=== PATIENT | male | born 1975 | race Caucasian/White ===

== ENCOUNTER 2017-02-19 18:06 | Emergency (ER) | payer OTHER ==
[~2017-02-19] VITALS: Ht 177.8 cm; Wt 124.7 kg
[~2017-02-19 18:06] MED LIST: ASPIRIN325 MG PO; ASPIRIN81 M1 PO; CHANTIX1 MG PO; CORDROL20 MG PO; IBU-8800 MG PO; LISINOPRIL10 MG PO; NAPROSYN500 MG PO; NKHM; PREDNICOT20 MG PO; PRILOSEC20 M1 PO; PRILOSEC40 M1 PO; ZANTAC 300300 MG PO; ZITHROMAX Z PA250 MG PO; ZITHROMAX250 MG PO; ZOFRAN ODT4 MG SL
[2017-02-19] MEDS ORDERED: PRILOSEC20 M1 PO (18:49)
[2017-02-19 19:02] VITALS: BP 170/70
[2017-02-19] MEDS ORDERED: PRINIVIL10 MG PO (19:08)
[2017-02-19] MEDS ORDERED: AVPAK AZITHROM250 M1 PO (19:08)
== END 2017-02-19 19:12 | disposition home or self-care (01) ==
LOC: ED 18:06
DX: I10 Essential (primary) hypertension (principal); J06.9 Acute upper respiratory infection, unspecified; Z79.82 Long term (current) use of aspirin; Z79.899 Other long term (current) drug therapy

== ENCOUNTER 2017-03-13 17:29 | Emergency (ER) | payer OTHER ==
[~2017-03-13] VITALS: Wt 127.0 kg
[2017-03-13 17:29] VITALS: BP 175/126
[~2017-03-13 17:29] MED LIST changes: +AVPAK AZITHROM250 M1 PO; +PRINIVIL10 MG PO
[2017-03-13 18:07] LABS: BILIRUBIN NEGATIVE (NEGATIVE); BLOOD NEGATIVE (NEGATIVE); CLARITY CLEAR (CLEAR); COLOR YELLOW (YELLOW); GLUCOSE NEGATIVE (NEGATIVE); KETONE NEGATIVE (NEGATIVE); LEUKO ESTERASE NEGATIVE (NEGATIVE); NITRITE NEGATIVE (NEGATIVE); PH 5.5 (5.0-9.0); PROTEIN NEGATIVE (NEGATIVE); SPECIFIC GRAVITY 1.025 (1.005-1.030)
[2017-03-13 18:19] LABS: URINE REFLEX COMMENT NO (NO); WBC 0-2 wbc/hpf (0-5)
[2017-03-13] MEDS ORDERED: ULTRAM50 MG PO (19:12)
[2017-03-13] MEDS ORDERED: MEDROL DOSEPAK4 MG PO (19:12)
== END 2017-03-13 19:39 | disposition home or self-care (01) ==
LOC: ED 17:29
PROVIDERS: Physician Assistant
DX: M54.16 Radiculopathy, lumbar region (principal); Z79.82 Long term (current) use of aspirin; Z79.899 Other long term (current) drug therapy

== ENCOUNTER → 2017-04-11 | Outpatient (CLI) | payer OTHER ==
[~2017-04-11] MED LIST changes: +MEDROL DOSEPAK4 MG PO; +ULTRAM50 MG PO
== END | disposition home or self-care (01) ==
LOC: MRI 13:53
DX: M51.25 Other intervertebral disc displacement, thoracolumbar region (principal); M51.34 Other intervertebral disc degeneration, thoracic region; M48.06 Spinal stenosis, lumbar region; M43.16 Spondylolisthesis, lumbar region

== ENCOUNTER 2017-05-04 23:18 | Emergency (ER) | payer OTHER ==
[~2017-05-04] VITALS: Ht 177.8 cm; Wt 122.5 kg
[2017-05-05 00:02] VITALS: BP 126/89
[2017-05-05 01:02] LABS: BILIRUBIN NEGATIVE (NEGATIVE); BLOOD NEGATIVE (NEGATIVE); CLARITY CLEAR (CLEAR); COLOR YELLOW (YELLOW); GLUCOSE 2+ (NEGATIVE); KETONE NEGATIVE (NEGATIVE); LEUKO ESTERASE NEGATIVE (NEGATIVE); NITRITE NEGATIVE (NEGATIVE); PH 5.5 (5.0-9.0); PROTEIN NEGATIVE (NEGATIVE); SPECIFIC GRAVITY 1.025 (1.005-1.030); UROBILINOGEN 0.2 E.U./dl (0.2-1.0)
[2017-05-05 01:08] LABS: BACTERIA TRACE; EPITHELIAL CELLS 0-2; RBC 0-2 rbc/hpf (0-2); URINE REFLEX COMMENT NO (NO); WBC 0-2 wbc/hpf (0-5)
[2017-05-05] MEDS ORDERED: CYCLOBENZAPRINE5 M3 PO (01:14)
[2017-05-05] MEDS ORDERED: MEDROL DOSEPAK4 MG PO (01:14)
[2017-05-05] MEDS ORDERED: TYLENOL WITH CO1 TA1 PO (01:14)
== END 2017-05-05 01:37 | disposition home or self-care (01) ==
LOC: ED 23:18
PROVIDERS: Physician Assistant
DX: G89.29 Other chronic pain (principal); M54.5 Low back pain; Z79.82 Long term (current) use of aspirin

== ENCOUNTER 2017-09-12 23:21 | Inpatient (IN) | payer SELFPAY ==
[~2017-09-12] VITALS: Ht 177.8 cm; Wt 127.5 kg
--- NOTE | ~2017-09-12 | CON ---
[place], [place] REPORT OF CONSULTATION NAME: KAPIL WOOD UNIT #: [id number] ROOM: 428 DOCTOR: JOSE MURPHY MD BIRTHDATE: [birth year] DOS: 09/13/2017 REASON FOR CONSULTATION: Chest pain and left body paresthesias. HISTORY OF PRESENT ILLNESS: The patient is a 42-year-old man who does have a history of obesity, type 2 diabetes mellitus (currently diet controlled) and hypertension. He had been admitted in the past to the [facility] with chest discomfort and hypertensive urgency. He tells me that a stress test was done while he was hospitalized at [facility] 1 year ago and he was told that it was normal. He was in his normal state of health until last evening. He was watching television at rest when he developed a tingling sensation in his left arm and left leg. He stated that his left hand felt weak. He got up and walked around, but his symptoms did not improve. He did not notice any other focal weakness. He tried to change positions, but nothing made the tingling any better. Subsequently, when he lay down, he felt a tight sensation in his chest. He became very concerned and therefore came to the Emergency Room. In the Emergency Room, a CAT scan of his head showed no acute intracranial process. Serial electrocardiograms were normal and troponin levels x 3 were normal. This morning, the discomfort in his chest is gone, but he continues to have tingling and paresthesias in his left arm and left leg. PAST MEDICAL HISTORY: Includes: 1. Essential hypertension. 2. Type 2 diabetes mellitus, diet controlled. 3. Intentional weight loss of about 40 pounds in the last year for management of his diabetes. 4. Morbid obesity. 5. Status post cholecystectomy, tonsillectomy and foot surgery. MEDICATIONS PRIOR TO ADMISSION: Aspirin 81 mg daily, lisinopril 10 mg daily and omeprazole 20 mg daily. ALLERGIES: He has no known drug allergies. FAMILY HISTORY: The patient's father and grandfather both had heart disease at a fairly early age. The patient states that his father of heart attack after having bypass surgery at age 65. REVIEW OF SYSTEMS: The patient denies diplopia or loss of vision. He states that he has a subjective feeling that his left hand is weak, but denies any other focal weakness. He does have the paresthesias of his left arm and left leg described before. He denies fevers, chills, sweats or recent weight change. He denies nausea or vomiting. He denies hemoptysis or hematemesis. He denies any recent injury to his back or neck. He denies orthopnea or PND. He denies any change in bowel or bladder habits and denies any blood in his urine or stool. He denies any skin rashes. He denies any swelling in his legs. He does have some pain and weakness in his right leg after an injury several months ago. He believes he tore a calf muscle. He denies polydipsia, polyuria or heat or cold intolerance. Remainder of the review of systems is negative except as [place], [place] REPORT OF CONSULTATION NAME: KAPIL WOOD UNIT #: [id number] ROOM: [facility] DOCTOR: JOSE MURPHY MD BIRTHDATE: [birth year] noted above. SOCIAL HISTORY: The patient is and lives with his . He does not smoke, but he does dip snuff. He does not consume excessive amounts of alcohol. PHYSICAL EXAMINATION: GENERAL: The patient is an overweight white male who is awake, alert and oriented. VITAL SIGNS: Pulse is 85 and regular, blood pressure on admission was 172/98, but it is currently 132/92. He is afebrile. He weighs 127.5 kg and has a body mass index of 40.3. HEENT: Normocephalic, atraumatic. Extraocular muscles are intact. Sclerae are clear. Pupils are equal, round and reactive to light. The oral mucosa is moist. Tongue is midline. NECK: Supple. He has no jugular distention. Carotids are full. I heard no bruits. He had no neck or supraclavicular masses. LUNGS: Respirations are unlabored. His chest is clear to auscultation and percussion. He has no presacral edema or chest wall tenderness. CARDIOVASCULAR: His heart has a regular rhythm. He has a soft fourth heart sound, but no third heart sound or murmur. The PMI is not displaced. He has no precordial heave, lift or thrill. ABDOMEN: Soft and normally active without masses, organomegaly or bruits. EXTREMITIES: Showed no clubbing, cyanosis or edema. Peripheral pulses are easily palpated in the feet bilaterally. He had no palpable cords or Homans sign. LABORATORY DATA: I reviewed his electrocardiograms that showed sinus rhythm and were normal tracings. No acute ST or T-wave changes were seen. Serial troponin levels were normal. Hemoglobin 13.4 with hematocrit 38.3. There are 6800 white cells and 223,000 platelets. INR is 0.9. Sodium 140, potassium 3.5, chloride 105, CO2 of 27, BUN 13, creatinine 1.04, sugar was 113. Hemoglobin A1c 6.6. Total cholesterol 125, triglycerides 112, LDL 70, HDL 33. TSH is 1.11. IMPRESSIONS: 1. Left body paresthesias, etiology not yet determined. These involve his arm and his leg, suggesting a central neurologic process rather than related to coronary ischemia. 2. Brief episode of substernal chest pain. The patient had no EKG changes or elevation in troponin. A stress test done 1 year ago was reportedly normal. 3. Type 2 diabetes mellitus, on diet therapy. 4. Hypertension. 5. Morbid obesity. PLAN: I had intended to do another stress test on the patient, but I am concerned about his continued left-sided paresthesias. For now, we will delay the stress test and evaluate him further with an MRI of the brain and carotid ultrasound. I would continue his lisinopril for blood pressure control. We will add clopidogrel to his aspirin as antiplatelet therapy. Further [place], [place] REPORT OF CONSULTATION NAME: KAPIL WOOD UNIT #: [id number] ROOM: 428 DOCTOR: JOSE MURPHY MD BIRTHDATE: [birth year] recommendations will depend upon his course in the hospital, MRI results, etc. I thank the hospitalist physicians for asking our advice regarding his care. JOSE MURPHY MD CM:CONSTR:REPORT OF CONSULTATION [id number] 09/13/17 0916 interface
--- NOTE | ~2017-09-12 | PR ---
[place], [place] PROGRESS NOTE NAME: KAPIL WOOD [facility] #: [id number] UNIT #: [id number] ROOM: 428 DOCTOR: JOSE MURPHY MD BIRTHDATE: [birth year] DOS: SUBJECTIVE: The patient was seen in the Cardiology Department just prior to his stress test today. He states that he is no longer having any chest discomfort. He still has paresthesias in his left arm, but his left leg has returned to normal. He has no focal weakness. His evaluation yesterday included an MRI of the head, which showed no acute intracranial abnormalities and no evidence for stroke. A carotid Doppler study showed normal flow and no significant plaque. PHYSICAL EXAMINATION: VITAL SIGNS: Today his pulse is 65 and regular, blood pressure is 134/74. He is afebrile. He weighs 127.5 kg and has a body mass index of 40.3. HEENT: Normocephalic, atraumatic. Extraocular muscles are intact. Sclerae are clear. Pupils are equal, round and react to light. Oral mucosa is moist. Tongue is midline. NECK: Supple. He has no jugular distention. Carotids are full without bruits. He has no neck or supraclavicular masses, no thyromegaly. LUNGS: Respirations are unlabored. His chest is clear to auscultation and percussion. He has no presacral edema. HEART: Has a regular rhythm with a very soft fourth heart sound, but no third heart sound or murmur. The PMI is not displaced. He has no precordial heave, lift or thrill. ABDOMEN: Soft and normally active without masses, organomegaly or bruits. EXTREMITIES: Showed no edema. IMPRESSION: 1. Left-sided paresthesias, etiology not yet determined. These involve his arm and his leg suggesting a neurologic process rather than coronary ischemia. 2. Brief episode of substernal chest pain without EKG changes or elevation in troponin. 3. Type 2 diabetes mellitus, managed with diet. 4. Hypertension. 5. Obesity. PLAN: We will proceed with an exercise myocardial perfusion examination. If that is normal, then no other cardiac workup would be indicated. Further evaluation of his cervical spine may be appropriate and will be deferred to his primary team. [facility] and I thank the hospitalist group for asking our advice regarding the patient's care. [place], [place] PROGRESS NOTE NAME: KAPIL WOOD UNIT #: [id number] ROOM: 428 DOCTOR: JOSE MURPHY MD BIRTHDATE: [birth year] JOSE MURPHY MD CM:PNJORDY [id number] JOSE MURPHY MD 09/14/17 1019 interface
[~2017-09-12 23:21] MED LIST changes: +CYCLOBENZAPRINE5 M3 PO; +TYLENOL WITH CO1 TA1 PO
[2017-09-12 23:25] VITALS: BP 167/109
[2017-09-13] VITALS (10 sets, daily range): BP systolic 130–172; BP diastolic 70–108
[2017-09-13 00:03] LABS: BASO % 0.4 % (0.0-1.0); EOS # 0.2 10*3/uL (0.0-0.4); EOS % 2.2 % (1.0-4.0); HEMOGLOBIN 13.9 g/dl (14.0-18.0); LYMPH # 1.9 10*3/uL (1.3-4.4); LYMPH % 27.2 % (27.0-41.0); MEAN CELL VOLUME 87.1 fl (80.0-94.0); MEAN CORPUSCULAR HGB 30.3 pg (27.0-31.0); MEAN CORPUSCULAR HGB CONC 34.8 g/dl (33.0-37.0); MEAN PLATELET VOLUME 9.9 fl (9.6-12.3); MONO # 0.5 10*3/uL (0.1-1.0); MONO % 6.3 % (3.0-9.0); NEUT # 4.5 10*3/uL (2.3-7.9); NEUT % 63.5 % (47.0-73.0); PLATELET COUNT AUTOMATED 243 10*3/uL (130-400); RED BLOOD COUNT 4.59 10*6/uL (4.50-5.90); RED CELL DISTRI WIDTH 12.5 % (0-14.5); WHITE BLOOD COUNT 7.1 10*3/uL (4.8-10.8)
[2017-09-13 00:14] LABS: ACT PARTIAL THROMBO TIME 21.9 SECONDS (20.8-31.5); INTERNATIONAL NORM RATIO 0.9 (2.0-3.5)
[2017-09-13 00:21] LABS: ALBUMIN 3.8 gm/dl (3.1-4.5); ALKALINE PHOSPHATASE 69 U/L (45-117); BUN 13 mg/dl (7-24); CHLORIDE 105 mmol/L (98-107); CREATININE 1.19 mg/dL (0.70-1.30); MAGNESIUM 2.2 mg/dL (1.5-2.1); POTASSIUM 3.5 mmol/L (3.5-5.1); SGOT/AST 18 IU/L (3-35); SGPT/ALT 38 U/L (12-78); SODIUM 141 mmol/L (136-145); TROPONIN I < 0.015 ng/ml (<0.045)
--- NOTE | 2017-09-13 00:28 | NUR ---
DR AYALA AWARE OF PT'S BLOOD PRESSURE OF 154/106, NO NEW ORDERS RECIEVED AT THIS TIME.
--- NOTE | 2017-09-13 02:36 | NUR ---
A 42, admitted to , under the services of ANNA Welch DO with a diagnosis of ANGINA. Chief complaint is PRESSURE ON CHEST AND NUMBNESS IN LT ARM AND LEG. Patient arrived via ambulatory from ER. Monitor applied. Initial assessment completed. Vital signs taken and recorded. ANNA WELCH DO notified of admission to the unit. Orders received. See assessment for past medical history, medications and allergies. Patient and/or family oriented to unit. [facility] visitation policy reviewed. Clothing/patient valuable form completed. MARGUERITE WHALEN
--- NOTE | 2017-09-13 03:15 | NUR ---
DR MEDLEY CONTACTED DUE TO HYDRALAZINE BEIN INEFFECTIVE BP 170/104.
[2017-09-13 05:56] LABS: BASO % 0.4 % (0.0-1.0); EOS # 0.2 10*3/uL (0.0-0.4); EOS % 2.7 % (1.0-4.0); HEMATOCRIT 38.3 % (42.0-52.0); HEMOGLOBIN 13.4 g/dl (14.0-18.0); LYMPH % 29.3 % (27.0-41.0); MEAN CELL VOLUME 87.8 fl (80.0-94.0); MEAN CORPUSCULAR HGB 30.7 pg (27.0-31.0); MEAN PLATELET VOLUME 9.5 fl (9.6-12.3); MONO # 0.5 10*3/uL (0.1-1.0); MONO % 6.7 % (3.0-9.0); NEUT # 4.1 10*3/uL (2.3-7.9); NEUT % 60.3 % (47.0-73.0); PLATELET COUNT AUTOMATED 223 10*3/uL (130-400); RED BLOOD COUNT 4.36 10*6/uL (4.50-5.90); RED CELL DISTRI WIDTH 12.5 % (0-14.5); WHITE BLOOD COUNT 6.8 10*3/uL (4.8-10.8)
[2017-09-13 06:23] LABS: BUN 13 mg/dl (7-24); CHLORIDE 105 mmol/L (98-107); CHOLESTEROL 125 mg/dL (<200); CREATININE 1.04 mg/dL (0.70-1.30); PHOSPHOROUS 4.3 mg/dL (2.5-4.9); POTASSIUM 3.5 mmol/L (3.5-5.1); SODIUM 140 mmol/L (136-145); TRIGLYCERIDES 112 mg/dl (<150); VLDL CHOLESTEROL 22 mg/dL (6-40)
[2017-09-13 06:33] LABS: HDL CHOLESTEROL 33 mg/dl (40-60); LDL CHOLESTEROL 70 mg/dL (9-159)
[2017-09-13 06:40] LABS: VITAMIN D, 25-HYDROXY 31.4 ng/mL (30-100)
--- NOTE | 2017-09-13 06:52 | NUR ---
DR. TAMAYO PAGED AT THIS TIME
--- NOTE | 2017-09-13 09:00 | NUR ---
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 Patient states lives at home with and son. There are few steps in the home. Physician: ang roy Pharmacy: [facility] health services: none Patient's level of ADLs: INDEPENDENT Patient has working utilities: all working DME: none Follow-up physician's appointment after d/c: will be made by hospitalist nurse director upon discharge Does patient want to access PORTAL?: no Discharge plan discussed with patient's , patient lives at home with and son, is independent in adls and ambulation, works, drives, states patient recently started a new job and hasnt been there long enough to get insurance, educated her on someone from [employer] would be calling them and sending them paperwork to fill out to help with the hospital stay. denies any home needs at this time. ASHANTI HEIN
--- NOTE | 2017-09-13 10:32 | NUR ---
SENT TO MRI VIA WHEELCHAIR. MONITOR REMOVED FOR MRI
--- NOTE | 2017-09-13 15:38 | NUR ---
PT COMPLAINS OF HEADACHE, TYLENOL GIVEN. SEE MAR
--- NOTE | 2017-09-13 16:30 | NUR ---
PT STATES TYLENOL EFFECTIVE FOR HEADACHE. NUMBNESS IN UPPER PART OF LEFT LEG HAS IMPROVED PER PATIENT. LEFT ARM NUMBNESS HAS HAD NO CHANGE THROUGHOUT THE DAY. PT IS ALERT AND ORITNED X3. NO NEURO CHANGES NOTED. PT IS AWARE OF NPO AFTER MIDNIGHT FOR STRESS TEST IN AM.
[2017-09-14] VITALS: BP 138/91
--- NOTE | 2017-09-14 02:12 | NUR ---
24 HR chart check completed.
[2017-09-14 04:00] VITALS: BP 114/80
[2017-09-14 07:28] LABS: BASO % 0.5 % (0.0-1.0); EOS # 0.2 10*3/uL (0.0-0.4); EOS % 2.6 % (1.0-4.0); HEMATOCRIT 39.2 % (42.0-52.0); HEMOGLOBIN 13.6 g/dl (14.0-18.0); LYMPH # 1.7 10*3/uL (1.3-4.4); LYMPH % 25.5 % (27.0-41.0); MEAN CELL VOLUME 87.7 fl (80.0-94.0); MEAN CORPUSCULAR HGB 30.4 pg (27.0-31.0); MEAN CORPUSCULAR HGB CONC 34.7 g/dl (33.0-37.0); MEAN PLATELET VOLUME 9.4 fl (9.6-12.3); MONO # 0.4 10*3/uL (0.1-1.0); MONO % 6.3 % (3.0-9.0); NEUT # 4.2 10*3/uL (2.3-7.9); NEUT % 64.8 % (47.0-73.0); PLATELET COUNT AUTOMATED 214 10*3/uL (130-400); RED BLOOD COUNT 4.47 10*6/uL (4.50-5.90); RED CELL DISTRI WIDTH 12.4 % (0-14.5); WHITE BLOOD COUNT 6.5 10*3/uL (4.8-10.8)
[2017-09-14 08:00] VITALS: BP 134/74
[2017-09-14 08:01] LABS: ALBUMIN 3.4 gm/dl (3.1-4.5); ALKALINE PHOSPHATASE 62 U/L (45-117); BUN 11 mg/dl (7-24); CHLORIDE 102 mmol/L (98-107); CREATININE 1.08 mg/dL (0.70-1.30); POTASSIUM 3.7 mmol/L (3.5-5.1); SGOT/AST 12 IU/L (3-35); SGPT/ALT 36 U/L (12-78); SODIUM 140 mmol/L (136-145); TOTAL PROTEIN 6.8 gm/dL (6.4-8.2)
--- NOTE | 2017-09-14 09:00 | NUR ---
case management visits with patient, patient denies any home needs
--- NOTE | 2017-09-14 09:07 | NUR ---
PT OFF FLOOR FOR LEXISCAN.
--- NOTE | 2017-09-14 10:00 | NUR ---
INFORMED CONSENT OBTAINED FOR EXERCISE CARDIOLITE STRESS TEST WITH DR. MURPHY. STRESS TEST CHANGED FROM LEXISCAN TO EXERCISE BY DR. MURPHY. RESTING EKG NSR WITH A SUPINE HR OF 71 WITH BP OF 130/80 AND HR OF 84 WITH BP OF 126/98 IN STANDING POSITION. PT COMPLETED 8:10 OF A GRACE PROTOCOL AND TEST COMPLETED BECAUSE OF FATIGUE AND SHORTNESS OF BREATH. REACHED A PEAK HR OF 169 WHICH IS 94% OF PREDICTED MAX WITH A PEAK BP OF 178/90. HAD NO CHEST PAIN OR ANY EKG CHANGES. HAS A GOOD EXERCISE TOLERANCE. LAST RECOVERY HR OF 111 WITH BP OF 122/86. AWAITING SCANNING IN STABLE CONDITION.
[2017-09-14 12:00] VITALS: BP 128/78
[2017-09-14] MEDS ORDERED: ATORVASTATIN CA80 M1 PO (13:16)
--- NOTE | 2017-09-14 14:52 | NUR ---
Discharge instructions reviewed with patient/family. Patient receptive and verbalizes understanding. Follow-up care arranged. Written instructions given to patient/family. MORENITA BRUMFIELD
== END 2017-09-14 14:52 | disposition home or self-care (01) | DRG 69 ==
LOC: ED 23:21 → 4E 09-13 00:42 → EDHOLD 09-13 00:42 → 4E 09-13 01:03
PROVIDERS: Hospitalist; Student in an Organized Health Care Education/Training Program; ADMIT Internal Medicine
PROC: 4A02XM4 Measurement of Cardiac Total Activity, External Approach (ICD-10-PCS; principal; 2017-09-14)
PROC: 3E033HZ Introduction of Radioactive Substance into Peripheral Vein, Percutaneous Approach (ICD-10-PCS; principal; 2017-09-14)
DX: G45.9 Transient cerebral ischemic attack, unspecified (principal); E11.65 Type 2 diabetes mellitus with hyperglycemia; Z68.41 Body mass index [BMI] 40.0-44.9, adult; R07.9 Chest pain, unspecified; D64.9 Anemia, unspecified; E83.41 Hypermagnesemia; I10 Essential (primary) hypertension; F17.200 Nicotine dependence, unspecified, uncomplicated; E66.01 Morbid (severe) obesity due to excess calories; Z90.49 Acquired absence of other specified parts of digestive tract; Z79.82 Long term (current) use of aspirin; Z79.899 Other long term (current) drug therapy; Z71.6 Tobacco abuse counseling; Z82.49 Family history of ischemic heart disease and other diseases of the circulatory system; Z80.9 Family history of malignant neoplasm, unspecified

== ENCOUNTER 2018-03-27 22:35 | Emergency (ER) | payer SELFPAY ==
[~2018-03-27] VITALS: Ht 177.8 cm; Wt 120.2 kg
[~2018-03-27 22:35] MED LIST changes: +ATORVASTATIN CA80 M1 PO
[2018-03-28 01:05] LABS: BASO # 0.1 10*3/uL (0.0-0.1); BASO % 0.7 % (0.0-1.0); EOS # 0.1 10*3/uL (0.0-0.4); HEMATOCRIT 41.2 % (42.0-52.0); HEMOGLOBIN 14.1 g/dl (14.0-18.0); LYMPH # 1.8 10*3/uL (1.3-4.4); LYMPH % 26.4 % (27.0-41.0); MEAN CELL VOLUME 87.7 fl (80.0-94.0); MEAN CORPUSCULAR HGB CONC 34.2 g/dl (33.0-37.0); MEAN PLATELET VOLUME 9.8 fl (9.6-12.3); MONO # 0.4 10*3/uL (0.1-1.0); MONO % 5.8 % (3.0-9.0); NEUT # 4.4 10*3/uL (2.3-7.9); NEUT % 63.8 % (47.0-73.0); PLATELET COUNT AUTOMATED 227 10*3/uL (130-400); RED CELL DISTRI WIDTH 12.7 % (0-14.5); WHITE BLOOD COUNT 6.9 10*3/uL (4.8-10.8)
[2018-03-28 01:18] LABS: ALBUMIN 3.6 gm/dl (3.1-4.5); ALKALINE PHOSPHATASE 63 U/L (45-117); BUN 10 mg/dl (7-24); CHLORIDE 107 mmol/L (98-107); CREATININE 1.22 mg/dL (0.70-1.30); POTASSIUM 3.8 mmol/L (3.5-5.1); SGOT/AST 13 IU/L (3-35); SGPT/ALT 36 U/L (12-78); SODIUM 141 mmol/L (136-145)
[2018-03-28 02:53] LABS: URINE AMPHETAMINES < 1000 (1000ng/ml); URINE BARBITURATES < 200 (200ng/ml); URINE BENZODIAZEPINES < 200 (200ng/ml); URINE CANNABINOIDS (THC) < 50 (50ng/ml); URINE COCAINE < 300 (300ng/ml); URINE METHADONE < 300 (300ng/ml); URINE OPIATES < 300 (300ng/ml)
[2018-03-28 03:00] LABS: URINE PHENCYCLIDINE < 25 (25ng/ml)
[2018-03-28 03:37] VITALS: BP 120/72
== END 2018-03-28 03:54 | disposition home or self-care (01) ==
LOC: ED 22:35
PROVIDERS: Emergency Medicine
DX: G43.909 Migraine, unspecified, not intractable, without status migrainosus (principal); I10 Essential (primary) hypertension; E11.9 Type 2 diabetes mellitus without complications; F17.200 Nicotine dependence, unspecified, uncomplicated; K21.9 Gastro-esophageal reflux disease without esophagitis; Z86.73 Personal history of transient ischemic attack (TIA), and cerebral infarction without residual deficits; Z79.82 Long term (current) use of aspirin; Z90.89 Acquired absence of other organs; Z98.890 Other specified postprocedural states; Z79.899 Other long term (current) drug therapy

== ENCOUNTER 2018-05-16 17:22 | Emergency (ER) | payer SELFPAY ==
[~2018-05-16] VITALS: Ht 180.3 cm; Wt 117.9 kg
[2018-05-16] MEDS ORDERED: PREDNISONE20 M1 PO (18:42)
[2018-05-16 19:15] VITALS: BP 165/113
== END 2018-05-16 20:45 | disposition left against medical advice (07) ==
LOC: ED 17:22
DX: T78.3XXA Angioneurotic edema, initial encounter (principal); Z90.89 Acquired absence of other organs; Z98.890 Other specified postprocedural states; Z79.82 Long term (current) use of aspirin; Z79.899 Other long term (current) drug therapy; Y92.9 Unspecified place or not applicable

== ENCOUNTER 2018-11-29 17:17 | Emergency (ER) | payer OTHER ==
[~2018-11-29] VITALS: Ht 177.8 cm; Wt 128.8 kg
--- NOTE | ~2018-11-29 | EKG ---
[place], [place] ELECTROCARDIOGRAM REPORT NAME: KAPIL WOOD UNIT #: [id number] ROOM: DOCTOR: DAVID DRAFT REPORT BIRTHDATE: [birth year] [facility] Test Date: 2018-11-29 Test Time: 18:01:23 Pat Name: KAPIL WOOD Department: ER Room: Gender: Drum Sprayer: Elise Jasmine : 1975 Requested By: SANDRA POLANCO Order Number: [id number] Reading MD: Deven Martin MD Measurements Intervals [place] Rate: 85 P: -16 TN: 166 QRS: -33 QRSD: 96 T: -1 QT: 393 QTc: 468 Interpretive Statements Sinus rhythm Abnormal R-wave progression, late transition Left ventricular hypertrophy Borderline T abnormalities, inferior leads Electronically Signed On 12-05-2018 23:53:22 PST by Deven Martin MD CM:EKGRPT:ELECTROCARDIOGRAM REPORT [id number] SANDRA SAVAGE DRAFT REPORT SANDRA POLANCO DO
[~2018-11-29 17:17] MED LIST changes: +PREDNISONE20 M1 PO
[2018-11-29 17:48] VITALS: BP 134/92
[2018-11-29 18:20] LABS: BASO % 0.4 % (0.0-1.0); EOS # 0.2 10*3/uL (0.0-0.4); EOS % 2.2 % (1.0-4.0); HEMOGLOBIN 14.2 g/dl (14.0-18.0); LYMPH # 1.7 10*3/uL (1.3-4.4); LYMPH % 24.1 % (27.0-41.0); MEAN CELL VOLUME 88.6 fl (80.0-94.0); MEAN CORPUSCULAR HGB CONC 33.8 g/dl (33.0-37.0); MEAN PLATELET VOLUME 9.4 fl (9.6-12.3); MONO # 0.4 10*3/uL (0.1-1.0); MONO % 6.1 % (3.0-9.0); NEUT # 4.6 10*3/uL (2.3-7.9); NEUT % 66.6 % (47.0-73.0); PLATELET COUNT AUTOMATED 263 10*3/uL (130-400); RED BLOOD COUNT 4.74 10*6/uL (4.50-5.90); RED CELL DISTRI WIDTH 12.9 % (0-14.5); WHITE BLOOD COUNT 6.9 10*3/uL (4.8-10.8)
[2018-11-29 18:35] LABS: INTERNATIONAL NORM RATIO 0.9 (2.0-3.5)
[2018-11-29 18:36] LABS: ALBUMIN 3.7 gm/dl (3.1-4.5); ALKALINE PHOSPHATASE 72 U/L (45-117); BUN 16 mg/dl (7-24); CHLORIDE 103 mmol/L (98-107); CREATININE 1.11 mg/dL (0.70-1.30); LIPASE 230 U/L (73-393); POTASSIUM 4.4 mmol/L (3.5-5.1); SGOT/AST 20 IU/L (3-35); SGPT/ALT 46 U/L (12-78); SODIUM 139 mmol/L (136-145); TOTAL PROTEIN 7.4 gm/dL (6.4-8.2)
[2018-11-29 18:38] LABS: TROPONIN I < 0.015 ng/ml (<0.045)
== END 2018-11-29 18:50 | disposition home or self-care (01) ==
LOC: ED 17:17
PROVIDERS: Emergency Medicine
DX: L02.211 Cutaneous abscess of abdominal wall (principal); I10 Essential (primary) hypertension; E11.9 Type 2 diabetes mellitus without complications; K21.9 Gastro-esophageal reflux disease without esophagitis; R79.1 Abnormal coagulation profile; Z79.899 Other long term (current) drug therapy; Z79.82 Long term (current) use of aspirin; Z86.718 Personal history of other venous thrombosis and embolism

== ENCOUNTER 2019-07-13 01:38 | Emergency (ER) | payer SELFPAY ==
[~2019-07-13] VITALS: Ht 177.8 cm; Wt 120.2 kg
[2019-07-13 01:41] VITALS: BP 141/92
[2019-07-13 02:18] LABS: BASO % 0.3 % (0.0-1.0); EOS # 0.2 10*3/uL (0.0-0.4); EOS % 2.3 % (1.0-4.0); HEMOGLOBIN 12.3 g/dl (14.0-18.0); LYMPH # 1.3 10*3/uL (1.3-4.4); LYMPH % 16.8 % (27.0-41.0); MEAN CELL VOLUME 90.5 fl (80.0-94.0); MEAN CORPUSCULAR HGB 30.9 pg (27.0-31.0); MEAN CORPUSCULAR HGB CONC 34.2 g/dl (33.0-37.0); MEAN PLATELET VOLUME 9.8 fl (9.6-12.3); MONO # 0.5 10*3/uL (0.1-1.0); MONO % 6.4 % (3.0-9.0); NEUT # 5.7 10*3/uL (2.3-7.9); NEUT % 73.8 % (47.0-73.0); PLATELET COUNT AUTOMATED 188 10*3/uL (130-400); RED BLOOD COUNT 3.98 10*6/uL (4.50-5.90); RED CELL DISTRI WIDTH 12.4 % (0-14.5); WHITE BLOOD COUNT 7.7 10*3/uL (4.8-10.8)
[2019-07-13] MEDS ORDERED: PREDNISONE10 MG PO (02:19)
[2019-07-13] MEDS ORDERED: PROAIR HFA8.5 GM INH (02:19)
[2019-07-13] MEDS ORDERED: ZITHROMAX250 MG PO (02:19)
[2019-07-13 02:35] LABS: ALBUMIN 3.3 gm/dl (3.1-4.5); ALKALINE PHOSPHATASE 62 U/L (45-117); BUN 10 mg/dl (7-24); CHLORIDE 111 mmol/L (98-107); CREATININE 0.97 mg/dL (0.70-1.30); POTASSIUM 3.6 mmol/L (3.5-5.1); SGOT/AST 19 IU/L (3-35); SGPT/ALT 41 U/L (12-78); SODIUM 144 mmol/L (136-145); TOTAL PROTEIN 6.1 gm/dL (6.4-8.2)
== END 2019-07-13 03:18 | disposition home or self-care (01) ==
LOC: ED 01:38
PROVIDERS: Emergency Medicine Emergency Medical Services
DX: J20.9 Acute bronchitis, unspecified (principal); J02.9 Acute pharyngitis, unspecified; G43.909 Migraine, unspecified, not intractable, without status migrainosus; E11.9 Type 2 diabetes mellitus without complications; I10 Essential (primary) hypertension; Z79.899 Other long term (current) drug therapy; Z79.82 Long term (current) use of aspirin; Z86.718 Personal history of other venous thrombosis and embolism

== ENCOUNTER 2019-09-06 22:42 | Emergency (ER) | payer SELFPAY ==
[~2019-09-06] VITALS: Ht 177.8 cm; Wt 117.9 kg
[~2019-09-06 22:42] MED LIST changes: +PREDNISONE10 MG PO; +PROAIR HFA8.5 GM INH
[2019-09-06 22:43] VITALS: BP 158/96
== END 2019-09-07 01:41 | disposition home or self-care (01) ==
LOC: ED 22:42
DX: S39.012A Strain of muscle, fascia and tendon of lower back, initial encounter (principal); I10 Essential (primary) hypertension; G43.909 Migraine, unspecified, not intractable, without status migrainosus; F17.200 Nicotine dependence, unspecified, uncomplicated; E11.9 Type 2 diabetes mellitus without complications; Z86.73 Personal history of transient ischemic attack (TIA), and cerebral infarction without residual deficits; Z90.49 Acquired absence of other specified parts of digestive tract; Z98.890 Other specified postprocedural states; Z79.82 Long term (current) use of aspirin; Z79.899 Other long term (current) drug therapy; X50.1XXA Overexertion from prolonged static or awkward postures, initial encounter; Y93.89 Activity, other specified; Y92.89 Other specified places as the place of occurrence of the external cause; Y99.9 Unspecified external cause status

== ENCOUNTER 2019-11-29 23:43 | Emergency (ER) | payer OTHER ==
[~2019-11-29] VITALS: Ht 431.8 cm; Wt 120.2 kg
[2019-11-30 00:01] VITALS: BP 179/120
== END 2019-11-30 02:47 | disposition home or self-care (01) ==
LOC: ED 23:43
DX: S66.812A Strain of other specified muscles, fascia and tendons at wrist and hand level, left hand, initial encounter (principal); J45.909 Unspecified asthma, uncomplicated; I10 Essential (primary) hypertension; E11.9 Type 2 diabetes mellitus without complications; G43.909 Migraine, unspecified, not intractable, without status migrainosus; K21.9 Gastro-esophageal reflux disease without esophagitis; Z79.2 Long term (current) use of antibiotics; Z79.899 Other long term (current) drug therapy; Z79.82 Long term (current) use of aspirin; Z90.49 Acquired absence of other specified parts of digestive tract; W23.0XXA Caught, crushed, jammed, or pinched between moving objects, initial encounter; Y93.89 Activity, other specified; Y92.89 Other specified places as the place of occurrence of the external cause; Y99.8 Other external cause status

== ENCOUNTER 2019-12-01 22:30 | Inpatient (IN) | payer OTHER ==
[~2019-12-01] VITALS: Ht 182.8 cm; Wt 122.5 kg
[2019-12-01 22:40] VITALS: BP 161/118
[2019-12-02] VITALS (10 sets, daily range): BP systolic 142–182; BP diastolic 76–130
[2019-12-02 00:14] LABS: BASO % 0.4 % (0.0-1.0); EOS # 0.2 10*3/uL (0.0-0.4); HEMATOCRIT 41.6 % (42.0-52.0); HEMOGLOBIN 14.3 g/dl (14.0-18.0); LYMPH # 1.9 10*3/uL (1.3-4.4); LYMPH % 21.3 % (27.0-41.0); MEAN CELL VOLUME 87.6 fl (80.0-94.0); MEAN CORPUSCULAR HGB 30.1 pg (27.0-31.0); MEAN CORPUSCULAR HGB CONC 34.4 g/dl (33.0-37.0); MONO # 0.5 10*3/uL (0.1-1.0); MONO % 5.9 % (3.0-9.0); NEUT # 6.2 10*3/uL (2.3-7.9); NEUT % 69.5 % (47.0-73.0); PLATELET COUNT AUTOMATED 232 10*3/uL (130-400); RED BLOOD COUNT 4.75 10*6/uL (4.50-5.90); RED CELL DISTRI WIDTH 12.3 % (0-14.5)
[2019-12-02 00:31] LABS: ALBUMIN 3.5 gm/dl (3.1-4.5); ALKALINE PHOSPHATASE 92 U/L (45-117); BUN 13 mg/dl (7-24); CHLORIDE 103 mmol/L (98-107); CREATININE 1.34 mg/dL (0.70-1.30); POTASSIUM 3.9 mmol/L (3.5-5.1); SGOT/AST 17 IU/L (3-35); SGPT/ALT 43 U/L (12-78); SODIUM 135 mmol/L (136-145); TOTAL PROTEIN 7.1 gm/dL (6.4-8.2)
--- NOTE | 2019-12-02 01:27 | NUR ---
PT UP TO RESTROOM AT THIS TIME.
--- NOTE | 2019-12-02 01:44 | NUR ---
PT RESTING IN BED. STATES HIS PAIN IS A 10/10. MANUAL BP WAS 182/130. DR CHILEL NOTIFIED.
[2019-12-02 06:04] LABS: ALBUMIN 3.3 gm/dl (3.1-4.5); ALKALINE PHOSPHATASE 81 U/L (45-117); BUN 11 mg/dl (7-24); CHLORIDE 106 mmol/L (98-107); CHOLESTEROL 120 mg/dL (<200); CREATININE 1.06 mg/dL (0.70-1.30); HDL CHOLESTEROL 32 mg/dl (40-60); LDL CHOLESTEROL 39 mg/dL (9-159); PHOSPHOROUS 3.5 mg/dL (2.5-4.9); POTASSIUM 3.6 mmol/L (3.5-5.1); SGOT/AST 11 IU/L (3-35); SGPT/ALT 37 U/L (12-78); SODIUM 138 mmol/L (136-145); TOTAL PROTEIN 6.6 gm/dL (6.4-8.2); TRIGLYCERIDES 244 mg/dl (<150); VLDL CHOLESTEROL 49 mg/dL (6-40)
[2019-12-02 06:05] LABS: BASO # 0.1 10*3/uL (0.0-0.1); BASO % 0.6 % (0.0-1.0); EOS # 0.2 10*3/uL (0.0-0.4); EOS % 2.2 % (1.0-4.0); HEMATOCRIT 39.9 % (42.0-52.0); HEMOGLOBIN 13.9 g/dl (14.0-18.0); LYMPH # 1.9 10*3/uL (1.3-4.4); LYMPH % 24.6 % (27.0-41.0); MEAN CELL VOLUME 88.1 fl (80.0-94.0); MEAN CORPUSCULAR HGB 30.7 pg (27.0-31.0); MEAN CORPUSCULAR HGB CONC 34.8 g/dl (33.0-37.0); MONO # 0.5 10*3/uL (0.1-1.0); MONO % 5.9 % (3.0-9.0); NEUT # 5.2 10*3/uL (2.3-7.9); NEUT % 65.4 % (47.0-73.0); PLATELET COUNT AUTOMATED 221 10*3/uL (130-400); RED BLOOD COUNT 4.53 10*6/uL (4.50-5.90); RED CELL DISTRI WIDTH 12.4 % (0-14.5); WHITE BLOOD COUNT 7.9 10*3/uL (4.8-10.8)
[2019-12-02 06:10] LABS: FREE T4 1.13 ng/dl (0.76-1.46)
--- NOTE | 2019-12-02 07:27 | NUR ---
PT IS AWKE AND UP TO THE BATHROOM, ESTEFANIA ARTEAGA PAIN AT THIS TIME. ORDERING BRAEKFAST.
--- NOTE | 2019-12-02 08:00 | NUR ---
PT WAS COVERED WITH 14 UNITS OF UNITS FOR GLUCOSE <400 PER SLIDING SCALE.
--- NOTE | 2019-12-02 08:45 | NUR ---
A 44, admitted to , under the services of BURKE Lockett DO with a diagnosis of HTN emergency facial cellulitis hyperglycemia. Chief complaint is basic needs. Patient arrived via stretcher from ER. Monitor applied. Initial assessment completed. Vital signs taken and recorded. BURKE LOCKETT DO notified of admission to the unit. Orders received. See assessment for past medical history, medications and allergies. Patient and/or family oriented to unit. [address] visitation policy reviewed. Clothing/patient valuable form completed. JP KNOTT
--- NOTE | 2019-12-02 09:10 | NUR ---
[place] given per patient request for c/o throbbing lip pain. Will monitor.
--- NOTE | 2019-12-02 10:00 | NUR ---
Myrna effective. Patient satisfied.
--- NOTE | 2019-12-02 17:19 | NUR ---
Spoke with regarding patients blood pressure and patients home medications needed ordered.
--- NOTE | 2019-12-02 18:34 | NUR ---
[place] given per patient request for c/o pain lower lip. Will monitor.
--- NOTE | 2019-12-02 19:50 | NUR ---
MANUAL BLOOD PRESSURE RECHECKED AT REQUEST OF DR. MORRIS AT THIS TIME. RESULTS 158/102, RESULTS CALLED TO , SEE EMAR FOR ORDERS.
--- NOTE | 2019-12-02 21:45 | NUR ---
MANUAL BLOOD PRESSURE RECHECKED ONE HOUR POST ORAL NORVASC ADMINISTRATION, RESULTS 164/102, PATIENT COMPLAINING OF A HEADACHE AT THIS TIME. NOTIFIED AT THIS TIME, AWAITING ORDERS.
--- NOTE | 2019-12-02 22:21 | NUR ---
IV LOPRESSOR GIVEN AT THIS TIME PER ORDERS. WILL CONTINUE TO MONITOR, AND RECHECK BLOOD PRESSURE MANUALLY.
[2019-12-03] VITALS (9 sets, daily range): BP systolic 148–162; BP diastolic 92–110
[2019-12-03 07:25] LABS: BASO # 0.1 10*3/uL (0.0-0.1); BASO % 0.8 % (0.0-1.0); EOS # 0.2 10*3/uL (0.0-0.4); EOS % 2.5 % (1.0-4.0); HEMATOCRIT 41.2 % (42.0-52.0); HEMOGLOBIN 14.4 g/dl (14.0-18.0); LYMPH # 1.3 10*3/uL (1.3-4.4); LYMPH % 17.1 % (27.0-41.0); MEAN CELL VOLUME 88.6 fl (80.0-94.0); MEAN PLATELET VOLUME 9.8 fl (9.6-12.3); MONO # 0.5 10*3/uL (0.1-1.0); MONO % 6.6 % (3.0-9.0); NEUT # 5.6 10*3/uL (2.3-7.9); NEUT % 72.3 % (47.0-73.0); PLATELET COUNT AUTOMATED 228 10*3/uL (130-400); RED BLOOD COUNT 4.65 10*6/uL (4.50-5.90); RED CELL DISTRI WIDTH 12.7 % (0-14.5); WHITE BLOOD COUNT 7.7 10*3/uL (4.8-10.8)
[2019-12-03 07:43] LABS: BUN 12 mg/dl (7-24); CHLORIDE 104 mmol/L (98-107); CREATININE 1.15 mg/dL (0.70-1.30); POTASSIUM 3.8 mmol/L (3.5-5.1); SODIUM 139 mmol/L (136-145)
--- NOTE | 2019-12-03 08:23 | NUR ---
PATIENT RESTING IN BED, PLEASANT DURING AM ASSEMENT, PATIENT C/O 8 OUT OF 10 LIP PAIN, PRN NORCO GIVEN, WILL CONTINUE TO MONITOR FOR PAIN, LIP CULTURE OBTAINED AND SENT TO LAB. NELLY MOREJON
--- NOTE | 2019-12-03 08:38 | NUR ---
ADMINISTERED LISINOPRIL EARLY D/T B/P OF 158/106 AT TIME OF AM ASSEMENT. NELLY ENCARNACION SPJOHNSONCC
--- NOTE | 2019-12-03 09:00 | NUR ---
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 Patient states lives at home with . There are few steps in the home. Physician: ang roy Pharmacy: [facility] health services: none Patient's level of ADLs: INDEPENDENT Patient has working utilities: all working DME: none Follow-up physician's appointment after d/c: will be made by hospitalist nurse director upon discharge Does patient want to access PORTAL?: no Discharge plan discussed with patient, he lives at home with , he is independent in adls and ambulation, works, drives, he will return home when medically stable and denies any home needs. ASHANTI HEIN
--- NOTE | 2019-12-03 09:37 | NUR ---
PATIENT RATES PAIN AT A 2 OUT OF 10 STATES PAIN MEDICATION IS EFFECTIVE, PATIENT SITTING UP IN BED AT THIS TIME, PLEASANT AND COOPERATIVE, NELLY ENCARNACION SPNRCC
--- NOTE | 2019-12-03 09:52 | NUR ---
SPOKE WITH DR. BERGERON REGARDING BP THIS AM AND LET HER KNOW BP NOW OF 148/98 MANUALLY.
--- NOTE | 2019-12-03 12:17 | NUR ---
PATIENT RESTING IN BED, NO COMPLAINTS OF PAIN AT THIS TIME, WILL CONTINUE TO MONITOR FOR PAIN. NELLY MOREJON
--- NOTE | 2019-12-03 13:26 | NUR ---
CALLED DR. BERGERON MADE AWARE BP 148/100 MANUALLY. MADE AWARE WAS 152/104. MADE AWARE PT WAS GIVEN NORVASC.
--- NOTE | 2019-12-03 13:32 | NUR ---
PATIENT C/O LIP PAIN, RATES PAIN AT A 7 OUT OF 10, PRN NORCO GIVEN. NELLY ENCARNACION SPNRCC
--- NOTE | 2019-12-03 17:30 | NUR ---
PT SITTING UP IN BED. [id number]-[id number], SEE EMAR. TOLERATING IV ANTIBIOTIC WITH NO PROBLEM. CALL LIGHT IN REACH.
--- NOTE | 2019-12-03 19:07 | NUR ---
CALLED DR. MORRIS MADE AWAARE BP'S MANUALLY 150/92 WAS 162/110 AT 4PM.
[2019-12-04 00:12] VITALS: BP 165/111
[2019-12-04 02:39] VITALS: BP 153/94
[2019-12-04 07:15] LABS: BASO # 0.1 10*3/uL (0.0-0.1); BASO % 0.7 % (0.0-1.0); EOS # 0.3 10*3/uL (0.0-0.4); EOS % 3.8 % (1.0-4.0); HEMATOCRIT 42.9 % (42.0-52.0); HEMOGLOBIN 14.8 g/dl (14.0-18.0); LYMPH # 1.6 10*3/uL (1.3-4.4); LYMPH % 23.2 % (27.0-41.0); MEAN CELL VOLUME 88.1 fl (80.0-94.0); MEAN CORPUSCULAR HGB 30.4 pg (27.0-31.0); MEAN CORPUSCULAR HGB CONC 34.5 g/dl (33.0-37.0); MEAN PLATELET VOLUME 9.7 fl (9.6-12.3); MONO # 0.4 10*3/uL (0.1-1.0); NEUT # 4.5 10*3/uL (2.3-7.9); NEUT % 65.7 % (47.0-73.0); PLATELET COUNT AUTOMATED 249 10*3/uL (130-400); RED BLOOD COUNT 4.87 10*6/uL (4.50-5.90); RED CELL DISTRI WIDTH 12.6 % (0-14.5); WHITE BLOOD COUNT 6.9 10*3/uL (4.8-10.8)
[2019-12-04 07:56] LABS: BUN 13 mg/dl (7-24); CHLORIDE 104 mmol/L (98-107); CREATININE 1.04 mg/dL (0.70-1.30); POTASSIUM 3.8 mmol/L (3.5-5.1); SODIUM 139 mmol/L (136-145)
[2019-12-04 08:00] VITALS: BP 140/88
--- NOTE | 2019-12-04 08:50 | NUR ---
PT SITTING UP IN BED NO DISTRESS NOTED. WILL MONITOR
--- NOTE | 2019-12-04 09:00 | NUR ---
case management visits with patient, he will return home when medically stable and denies any home needs
--- NOTE | 2019-12-04 09:10 | NUR ---
pt requested and given norco for c/o gen pain pt rates pain 5/10 will monitor
[2019-12-04] MEDS ORDERED: AMLODIPINE BESY10 MG PO (10:24)
[2019-12-04] MEDS ORDERED: Zestril,Prinivi40 MG PO (10:24)
[2019-12-04] MEDS ORDERED: DOXYCYCLINE100 M3 PO (10:24)
[2019-12-04] MEDS ORDERED: GLUCOPHAGE1000 MG PO (10:25)
--- NOTE | 2019-12-04 12:03 | NUR ---
Discharge instructions reviewed with patient/family. Patient receptive and verbalizes understanding. Follow-up care arranged. Written instructions given to patient/family. LINDA ESTEVES
--- NOTE | 2019-12-04 12:33 | NUR ---
Discharge instructions reviewed with patient/family. Patient receptive and verbalizes understanding. Follow-up care arranged. Written instructions given to patient/family. MACKENZIE CLIFFORD
== END 2019-12-04 12:33 | disposition home or self-care (01) | DRG 602 ==
LOC: ED 22:30 → EDHOLD 12-02 02:30 → 4E 12-02 02:30
PROVIDERS: Emergency Medicine; Family Medicine; Internal Medicine; ADMIT Internal Medicine
DX: L03.211 Cellulitis of face (principal); N17.0 Acute kidney failure with tubular necrosis; E87.1 Hypo-osmolality and hyponatremia; I16.0 Hypertensive urgency; D64.9 Anemia, unspecified; I10 Essential (primary) hypertension; G43.909 Migraine, unspecified, not intractable, without status migrainosus; E13.65 Other specified diabetes mellitus with hyperglycemia; E55.9 Vitamin D deficiency, unspecified; E53.8 Deficiency of other specified B group vitamins; E78.1 Pure hyperglyceridemia; Z86.73 Personal history of transient ischemic attack (TIA), and cerebral infarction without residual deficits; Z87.01 Personal history of pneumonia (recurrent); Z90.49 Acquired absence of other specified parts of digestive tract; Z82.49 Family history of ischemic heart disease and other diseases of the circulatory system; Z80.8 Family history of malignant neoplasm of other organs or systems; Z79.82 Long term (current) use of aspirin; Z79.899 Other long term (current) drug therapy

== ENCOUNTER → 2019-12-21 | Outpatient (CLI) | payer OTHER ==
[~2019-12-21] MED LIST changes: +AMLODIPINE BESY10 MG PO; +DOXYCYCLINE100 M3 PO; +GLUCOPHAGE1000 MG PO; +Zestril,Prinivi40 MG PO
== END | disposition home or self-care (01) ==
LOC: RAD 15:32
DX: S63.642A Sprain of metacarpophalangeal joint of left thumb, initial encounter (principal); M65.4 Radial styloid tenosynovitis [de Quervain]; G56.02 Carpal tunnel syndrome, left upper limb

== ENCOUNTER → 2020-02-15 | Outpatient (CLI) | payer OTHER | END | disposition home or self-care (01) | LOC: RAD 20:00 | DX: S63.642A Sprain of metacarpophalangeal joint of left thumb, initial encounter (principal); S62.102S Fracture of unspecified carpal bone, left wrist, sequela; X58.XXXS Exposure to other specified factors, sequela; X58.XXXA Exposure to other specified factors, initial encounter; Y93.89 Activity, other specified; Y92.89 Other specified places as the place of occurrence of the external cause; Y99.8 Other external cause status ==

== ENCOUNTER → 2020-12-23 | Outpatient (CLI) | payer OTHER ==
[~2020-12-23] MED LIST changes: +LIPITOR20 MG PO; +METFORMIN HYDR500 MG PO; +Motrin,Rufen800 MG PO; +VITAMIN D350 MCG PO
== END | disposition home or self-care (01) ==
LOC: COVID19 13:06
PROVIDERS: ATTEND Orthopaedic Surgery
DX: Z01.812 Encounter for preprocedural laboratory examination (principal); Z20.822 Contact with and (suspected) exposure to COVID-19

== ENCOUNTER → 2020-12-23 | Outpatient (CLI) | payer OTHER ==
[2020-12-23 14:53] LABS: BUN 14 mg/dl (7-24); CHLORIDE 105 mmol/L (98-107); CREATININE 0.92 mg/dL (0.70-1.30); POTASSIUM 3.8 mmol/L (3.5-5.1); SODIUM 139 mmol/L (136-145)
== END | disposition home or self-care (01) ==
LOC: LAB 13:40
PROVIDERS: ATTEND Orthopaedic Surgery
DX: G56.02 Carpal tunnel syndrome, left upper limb (principal)

== ENCOUNTER → 2020-12-28 | Day surgery (SDC) | payer OTHER ==
[~2020-12-28] VITALS: Ht 177.8 cm; Wt 120.2 kg
[2020-12-28 06:58] VITALS: BP 125/81
[2020-12-28 08:04] VITALS: BP 109/67
[2020-12-28 08:15] VITALS: BP 112/77
[2020-12-28 08:32] VITALS: BP 117/80
== END ==
LOC: SDC 12-23 14:00
PROVIDERS: ATTEND Orthopaedic Surgery
DX: G56.03 Carpal tunnel syndrome, bilateral upper limbs (principal); J45.909 Unspecified asthma, uncomplicated; I10 Essential (primary) hypertension; E11.9 Type 2 diabetes mellitus without complications; G43.909 Migraine, unspecified, not intractable, without status migrainosus; K21.9 Gastro-esophageal reflux disease without esophagitis; Z90.49 Acquired absence of other specified parts of digestive tract; Z90.89 Acquired absence of other organs; Z79.84 Long term (current) use of oral hypoglycemic drugs; Z79.82 Long term (current) use of aspirin; Z79.899 Other long term (current) drug therapy

== ENCOUNTER 2021-03-09 12:05 | Emergency (ER) | payer OTHER ==
[~2021-03-09 12:05] MED LIST changes: -Motrin,Rufen800 MG PO
[2021-03-09 12:44] VITALS: BP 129/92
[2021-03-09] MEDS ORDERED: Motrin,Rufen800 MG PO ×2 (14:42)
[2021-03-09] MEDS ORDERED: CYCLOBENZAPRINE5 M3 PO ×2 (14:42)
== END 2021-03-09 14:51 | disposition home or self-care (01) ==
LOC: ED 12:05
DX: S39.012A Strain of muscle, fascia and tendon of lower back, initial encounter (principal); Z79.899 Other long term (current) drug therapy; Z79.82 Long term (current) use of aspirin; Z79.84 Long term (current) use of oral hypoglycemic drugs; Z90.49 Acquired absence of other specified parts of digestive tract; Z98.890 Other specified postprocedural states; X58.XXXA Exposure to other specified factors, initial encounter; Y93.89 Activity, other specified; Y92.89 Other specified places as the place of occurrence of the external cause; Y99.8 Other external cause status

== ENCOUNTER → 2021-03-14 | Outpatient (CLI) | payer OTHER ==
[~2021-03-14] MED LIST changes: +Motrin,Rufen800 MG PO
[2021-03-14 10:29] LABS: BUN 17 mg/dl (7-24); CHLORIDE 102 mmol/L (98-107); CREATININE 1.16 mg/dL (0.70-1.30); POTASSIUM 4.3 mmol/L (3.5-5.1); SODIUM 138 mmol/L (136-145)
== END | disposition home or self-care (01) ==
LOC: COVID19 08:04 → LAB 08:04
PROVIDERS: ATTEND Orthopaedic Surgery
DX: Z01.812 Encounter for preprocedural laboratory examination (principal); G56.01 Carpal tunnel syndrome, right upper limb; Z20.822 Contact with and (suspected) exposure to COVID-19

== ENCOUNTER → 2021-03-17 | Day surgery (SDC) | payer OTHER ==
[~2021-03-17] VITALS: Ht 177.8 cm; Wt 120.2 kg
[2021-03-17 06:59] VITALS: BP 108/86
[2021-03-17 08:05] VITALS: BP 111/78
[2021-03-17 08:20] VITALS: BP 102/66
[2021-03-17 08:35] VITALS: BP 102/61
== END | disposition home or self-care (01) ==
LOC: SDC 03-14 08:00
PROVIDERS: ATTEND Orthopaedic Surgery
DX: G56.01 Carpal tunnel syndrome, right upper limb (principal); J45.909 Unspecified asthma, uncomplicated; I10 Essential (primary) hypertension; E11.9 Type 2 diabetes mellitus without complications; K21.9 Gastro-esophageal reflux disease without esophagitis; G43.909 Migraine, unspecified, not intractable, without status migrainosus

== ENCOUNTER → 2021-06-14 | Outpatient (CLI) | payer OTHER | END | disposition home or self-care (01) | LOC: RESCLI 01:33 | PROVIDERS: ATTEND Internal Medicine | DX: K21.9 Gastro-esophageal reflux disease without esophagitis (principal); I10 Essential (primary) hypertension; E66.01 Morbid (severe) obesity due to excess calories; E11.9 Type 2 diabetes mellitus without complications; E55.9 Vitamin D deficiency, unspecified; Z76.89 Persons encountering health services in other specified circumstances; Z72.89 Other problems related to lifestyle; Z79.82 Long term (current) use of aspirin; Z79.899 Other long term (current) drug therapy; Z79.84 Long term (current) use of oral hypoglycemic drugs ==

== ENCOUNTER → 2021-07-02 | Outpatient (CLI) | payer OTHER ==
[2021-07-02 12:27] LABS: BASO % 0.6 % (0.0-1.0); EOS # 0.2 10*3/uL (0.0-0.4); EOS % 2.9 % (1.0-4.0); HEMATOCRIT 43.4 % (42.0-52.0); LYMPH # 1.4 10*3/uL (1.3-4.4); LYMPH % 20.7 % (27.0-41.0); MEAN CELL VOLUME 88.9 fl (80.0-94.0); MEAN CORPUSCULAR HGB 30.3 pg (27.0-31.0); MEAN CORPUSCULAR HGB CONC 34.1 g/dl (33.0-37.0); MEAN PLATELET VOLUME 9.7 fl (9.6-12.3); MONO # 0.3 10*3/uL (0.1-1.0); MONO % 5.2 % (3.0-9.0); NEUT # 4.6 10*3/uL (2.3-7.9); NEUT % 69.8 % (47.0-73.0); PLATELET COUNT AUTOMATED 231 10*3/uL (130-400); RED BLOOD COUNT 4.88 10*6/uL (4.50-5.90); RED CELL DISTRI WIDTH 13.1 % (0-14.5); WHITE BLOOD COUNT 6.6 10*3/uL (4.8-10.8)
[2021-07-02 13:04] LABS: ALKALINE PHOSPHATASE 71 U/L (45-117); BUN 14 mg/dl (7-24); CHLORIDE 107 mmol/L (98-107); CHOLESTEROL 119 mg/dL (<200); CREATININE 0.95 mg/dL (0.70-1.30); LDL CHOLESTEROL 31 mg/dL (9-159); POTASSIUM 4.3 mmol/L (3.5-5.1); SGOT/AST 21 IU/L (3-35); SODIUM 139 mmol/L (136-145); TOTAL PROTEIN 7.2 gm/dL (6.4-8.2); TRIGLYCERIDES 267 mg/dl (<150)
[2021-07-02 13:10] LABS: SGPT/ALT 45 U/L (12-78)
== END | disposition home or self-care (01) ==
LOC: LAB 11:47
PROVIDERS: ATTEND Internal Medicine
DX: I10 Essential (primary) hypertension (principal); K21.9 Gastro-esophageal reflux disease without esophagitis; E66.01 Morbid (severe) obesity due to excess calories; E11.9 Type 2 diabetes mellitus without complications

== ENCOUNTER → 2021-07-22 | Outpatient (CLI) | payer OTHER | END | disposition home or self-care (01) | LOC: RESCLI 04:00 | PROVIDERS: ATTEND Internal Medicine | DX: E11.9 Type 2 diabetes mellitus without complications (principal); I10 Essential (primary) hypertension; E55.9 Vitamin D deficiency, unspecified; K21.9 Gastro-esophageal reflux disease without esophagitis; F17.210 Nicotine dependence, cigarettes, uncomplicated; Z72.89 Other problems related to lifestyle; Z90.49 Acquired absence of other specified parts of digestive tract; Z98.890 Other specified postprocedural states; Z79.84 Long term (current) use of oral hypoglycemic drugs; Z79.82 Long term (current) use of aspirin; Z79.899 Other long term (current) drug therapy ==

== ENCOUNTER → 2022-06-22 | Outpatient (CLI) | payer OTHER ==
[2022-06-22 07:30] LABS: BASO # 0.1 10*3/uL (0.0-0.1); BASO % 0.7 % (0.0-1.0); EOS # 0.2 10*3/uL (0.0-0.4); EOS % 2.5 % (1.0-4.0); HEMATOCRIT 43.8 % (42.0-52.0); LYMPH # 1.5 10*3/uL (1.3-4.4); LYMPH % 20.3 % (27.0-41.0); MEAN CELL VOLUME 86.9 fl (80.0-94.0); MEAN CORPUSCULAR HGB 30.6 pg (27.0-31.0); MEAN CORPUSCULAR HGB CONC 35.2 g/dl (33.0-37.0); MEAN PLATELET VOLUME 9.5 fl (9.6-12.3); MONO # 0.4 10*3/uL (0.1-1.0); MONO % 5.7 % (3.0-9.0); NEUT # 5.3 10*3/uL (2.3-7.9); NEUT % 70.3 % (47.0-73.0); PLATELET COUNT AUTOMATED 211 10*3/uL (130-400); RED BLOOD COUNT 5.04 10*6/uL (4.50-5.90); RED CELL DISTRI WIDTH 13.2 % (0-14.5); WHITE BLOOD COUNT 7.5 10*3/uL (4.8-10.8)
[2022-06-22 07:48] LABS: ALKALINE PHOSPHATASE 74 U/L (45-117); BUN 22 mg/dl (7-24); CHLORIDE 107 mmol/L (98-107); CHOLESTEROL 109 mg/dL (<200); CREATININE 1.03 mg/dL (0.70-1.30); LDL CHOLESTEROL 31 mg/dL (9-159); POTASSIUM 4.1 mmol/L (3.5-5.1); SGOT/AST 14 IU/L (3-35); SGPT/ALT 29 U/L (12-78); SODIUM 139 mmol/L (136-145); TOTAL PROTEIN 7.1 gm/dL (6.4-8.2); TRIGLYCERIDES 230 mg/dl (<150)
[2022-06-22 08:11] LABS: VITAMIN D, 25-HYDROXY 38.6 ng/mL (30-100)
== END | disposition home or self-care (01) ==
LOC: LAB 07:14
PROVIDERS: Internal Medicine; ATTEND Internal Medicine
DX: E11.9 Type 2 diabetes mellitus without complications (principal); E55.9 Vitamin D deficiency, unspecified; R53.83 Other fatigue

== ENCOUNTER → 2022-06-23 | Outpatient (CLI) | payer OTHER | END | disposition home or self-care (01) | LOC: RESCLI 00:40 | PROVIDERS: ATTEND Internal Medicine | DX: E11.9 Type 2 diabetes mellitus without complications (principal); E55.9 Vitamin D deficiency, unspecified; I10 Essential (primary) hypertension; K21.9 Gastro-esophageal reflux disease without esophagitis; M79.642 Pain in left hand; Z79.899 Other long term (current) drug therapy; Z90.49 Acquired absence of other specified parts of digestive tract; Z79.82 Long term (current) use of aspirin; Z79.01 Long term (current) use of anticoagulants ==

== ENCOUNTER 2022-09-07 23:30 | Emergency (ER) | payer OTHER ==
[~2022-09-07] VITALS: Ht 177.8 cm; Wt 115.2 kg
[2022-09-07 23:48] LABS: BASO % 0.5 % (0.0-1.0); EOS # 0.2 10*3/uL (0.0-0.4); EOS % 2.1 % (1.0-4.0); HEMATOCRIT 46.7 % (42.0-52.0); LYMPH # 2.4 10*3/uL (1.3-4.4); MEAN CELL VOLUME 87.9 fl (80.0-94.0); MEAN CORPUSCULAR HGB 30.5 pg (27.0-31.0); MEAN CORPUSCULAR HGB CONC 34.7 g/dl (33.0-37.0); MEAN PLATELET VOLUME 9.7 fl (9.6-12.3); MONO # 0.5 10*3/uL (0.1-1.0); MONO % 5.6 % (3.0-9.0); NEUT # 4.9 10*3/uL (2.3-7.9); NEUT % 61.2 % (47.0-73.0); PLATELET COUNT AUTOMATED 234 10*3/uL (130-400); RED BLOOD COUNT 5.31 10*6/uL (4.50-5.90)
[2022-09-07 23:59] LABS: ACT PARTIAL THROMBO TIME 24.9 SECONDS (20.0-32.1)
[2022-09-08 00:04] LABS: ALKALINE PHOSPHATASE 82 U/L (45-117); BUN 16 mg/dl (7-24); CHLORIDE 107 mmol/L (98-107); CREATININE 1.04 mg/dL (0.70-1.30); POTASSIUM 3.6 mmol/L (3.5-5.1); SGOT/AST 13 IU/L (3-35); SGPT/ALT 30 U/L (12-78); SODIUM 142 mmol/L (136-145); TOTAL PROTEIN 7.5 gm/dL (6.4-8.2)
[2022-09-08 02:03] VITALS: BP 111/86
== END 2022-09-08 02:08 | disposition home or self-care (01) ==
LOC: ED 23:30
PROVIDERS: Internal Medicine
DX: R07.9 Chest pain, unspecified (principal); Z79.899 Other long term (current) drug therapy; Z79.82 Long term (current) use of aspirin; Z90.89 Acquired absence of other organs; Z90.49 Acquired absence of other specified parts of digestive tract

== ENCOUNTER → 2022-09-22 | Outpatient (CLI) | payer OTHER | END | disposition home or self-care (01) | LOC: RESCLI 15:45 | PROVIDERS: ATTEND Internal Medicine | DX: R00.2 Palpitations (principal); E11.9 Type 2 diabetes mellitus without complications; K21.9 Gastro-esophageal reflux disease without esophagitis; I10 Essential (primary) hypertension; E55.9 Vitamin D deficiency, unspecified; Z90.49 Acquired absence of other specified parts of digestive tract; Z98.890 Other specified postprocedural states; Z82.49 Family history of ischemic heart disease and other diseases of the circulatory system; Z87.891 Personal history of nicotine dependence; Z72.89 Other problems related to lifestyle; Z79.82 Long term (current) use of aspirin; Z79.899 Other long term (current) drug therapy ==

== ENCOUNTER → 2022-09-27 | Outpatient (CLI) | payer OTHER | END | disposition home or self-care (01) | LOC: CARD 09:00 | PROVIDERS: ATTEND Internal Medicine | DX: R00.2 Palpitations (principal) ==

== ENCOUNTER → 2023-01-06 | Outpatient (CLI) | payer OTHER ==
[2023-01-06 10:26] LABS: BUN 11 mg/dl (9-23); CHLORIDE 106 mmol/L (98-107); POTASSIUM 4.1 mmol/L (3.4-5.1)
== END | disposition home or self-care (01) ==
LOC: LAB 09:33
PROVIDERS: ATTEND Internal Medicine
DX: E11.9 Type 2 diabetes mellitus without complications (principal)

== ENCOUNTER → 2023-01-12 | Outpatient (CLI) | payer OTHER | END | disposition home or self-care (01) | LOC: RESCLI 01:01 | PROVIDERS: ATTEND Internal Medicine | DX: I10 Essential (primary) hypertension (principal); E11.9 Type 2 diabetes mellitus without complications; J45.909 Unspecified asthma, uncomplicated; Z90.49 Acquired absence of other specified parts of digestive tract; Z98.890 Other specified postprocedural states; Z82.49 Family history of ischemic heart disease and other diseases of the circulatory system; Z79.82 Long term (current) use of aspirin; Z79.84 Long term (current) use of oral hypoglycemic drugs; Z79.899 Other long term (current) drug therapy ==

== ENCOUNTER → 2023-08-07 | Outpatient (CLI) | payer OTHER ==
[2023-08-07 09:15] LABS: BUN 9 mg/dl (9-23); CHLORIDE 105 mmol/L (98-107); POTASSIUM 3.9 mmol/L (3.4-5.1)
== END | disposition home or self-care (01) ==
LOC: LAB 08:29
PROVIDERS: ATTEND Internal Medicine
DX: E11.9 Type 2 diabetes mellitus without complications (principal)

== ENCOUNTER → 2023-08-21 | Outpatient (CLI) | payer OTHER | END | disposition home or self-care (01) | LOC: WOUNDCARE 00:36 | PROVIDERS: ATTEND Nurse Practitioner Family | DX: L02.211 Cutaneous abscess of abdominal wall (principal); E55.9 Vitamin D deficiency, unspecified; I10 Essential (primary) hypertension; E11.9 Type 2 diabetes mellitus without complications; J45.909 Unspecified asthma, uncomplicated; F17.220 Nicotine dependence, chewing tobacco, uncomplicated; Z90.49 Acquired absence of other specified parts of digestive tract ==

== ENCOUNTER → 2023-08-28 | Outpatient (CLI) | payer OTHER | LOC: WOUNDCARE 00:45 | PROVIDERS: ATTEND Nurse Practitioner Family | DX: L02.211 Cutaneous abscess of abdominal wall (principal); E11.9 Type 2 diabetes mellitus without complications; E55.9 Vitamin D deficiency, unspecified; I10 Essential (primary) hypertension; J45.909 Unspecified asthma, uncomplicated; F17.220 Nicotine dependence, chewing tobacco, uncomplicated; Z90.49 Acquired absence of other specified parts of digestive tract ==

== ENCOUNTER → 2023-09-13 | Outpatient (CLI) | payer OTHER | END | disposition home or self-care (01) | LOC: WOUNDCARE 02:14 | PROVIDERS: ATTEND Nurse Practitioner Family | DX: L02.211 Cutaneous abscess of abdominal wall (principal); E11.9 Type 2 diabetes mellitus without complications; E55.9 Vitamin D deficiency, unspecified; I10 Essential (primary) hypertension; J45.909 Unspecified asthma, uncomplicated; F17.220 Nicotine dependence, chewing tobacco, uncomplicated; Z90.49 Acquired absence of other specified parts of digestive tract ==

== ENCOUNTER → 2024-02-15 | Outpatient (CLI) | payer OTHER | END | disposition home or self-care (01) | LOC: RESCLI 15:43 | PROVIDERS: ATTEND Internal Medicine | DX: J45.909 Unspecified asthma, uncomplicated (principal); E11.9 Type 2 diabetes mellitus without complications; E55.9 Vitamin D deficiency, unspecified; I10 Essential (primary) hypertension; K21.9 Gastro-esophageal reflux disease without esophagitis; R53.83 Other fatigue; Z79.899 Other long term (current) drug therapy; Z79.82 Long term (current) use of aspirin ==

== ENCOUNTER → 2025-06-24 | Outpatient (CLI) | payer OTHER ==
[2025-06-24 10:42] LABS: BASO # 0.0 10*3/uL (0.0-0.1); BASO % 0.6 % (0.0-1.0); EOS # 0.2 10*3/uL (0.0-0.4); EOS % 3.0 % (1.0-4.0); MEAN CELL VOLUME 88.6 fl (80.0-94.0); MEAN CORPUSCULAR HGB 30.1 pg (27.0-31.0); MEAN PLATELET VOLUME 9.6 fl (9.6-12.3); MONO # 0.3 10*3/uL (0.1-1.0); MONO % 6.0 % (3.0-9.0); NEUT # 3.5 10*3/uL (2.3-7.9); NEUT % 65.4 % (47.0-73.0); NUCLEATED RED BLOOD CELL 0.0 % (0.0-0.0); NUCLEATED RED BLOOD CELL 0.0 10*3/uL (0.0-0.0); PLATELET COUNT AUTOMATED 187 10*3/uL (130-400); RED CELL DISTRI WIDTH 12.9 % (0-14.5)
[2025-06-24 11:35] LABS: BUN 11 mg/dl (9-23); LDL CHOLESTEROL 51 mg/dL (9-159); SGPT/ALT 39 U/L (5-49)
== END | disposition home or self-care (01) ==
LOC: RESCLI 06-23 00:44 → LAB 09:00 → RESCLI 09:00
PROVIDERS: ATTEND Internal Medicine
DX: E11.9 Type 2 diabetes mellitus without complications (principal); I10 Essential (primary) hypertension; J45.909 Unspecified asthma, uncomplicated; K21.9 Gastro-esophageal reflux disease without esophagitis; Z12.11 Encounter for screening for malignant neoplasm of colon; E55.9 Vitamin D deficiency, unspecified; N52.9 Male erectile dysfunction, unspecified

== ENCOUNTER 2025-11-05 17:30 | Emergency (ER) | payer OTHER ==
[~2025-11-05] VITALS: Ht 177.8 cm; Wt 115.7 kg
[2025-11-05 18:21] VITALS: BP 133/88
[2025-11-05] MEDS ORDERED: IBU800 M1 PO (20:32)
== END 2025-11-05 20:47 | disposition home or self-care (01) ==
LOC: ED 17:30
DX: M79.672 Pain in left foot (principal); J45.909 Unspecified asthma, uncomplicated; I10 Essential (primary) hypertension; E11.9 Type 2 diabetes mellitus without complications; G43.909 Migraine, unspecified, not intractable, without status migrainosus; K21.9 Gastro-esophageal reflux disease without esophagitis; Z90.89 Acquired absence of other organs; Z90.49 Acquired absence of other specified parts of digestive tract; Z98.890 Other specified postprocedural states